=== PATIENT | female | born 1995 | race Hispanic/Latino ===

== ENCOUNTER 2018-12-11 12:47 | Day surgery (SDC) | payer MEDICAID, OTHER ==
[2018-12-11 13:25] VITALS: BP 132/78; TEMP 99.2; BMI 28.7
--- NOTE | 2018-12-11 14:44 | PDOC.FPROB ---
FMR OB H&P: HPI - History of Present Illness Chief Complaint: lost mucous plug Indentification: at 39.3 by 7.3wk sono History of Present Illness: Patient comes in with complaint of blood tinged locia which started earlier this morning. She notices the discharge when urinating. She denies burning with urination or blood in the urine. She denies sudden rupture of membranes or slow leakage. She states she is feeling contractions every hour or so but not currently. The patient denies fevers, chills, sweats, N/V/D. She has been tolerating PO without difficulty. She was checked at [facility] yesterday and was told she was dilated to 4cm. Primary Care Physician: ryan FMR OB H&P: Current - Care : 2 Para: 1 Gestational age: 39.3 Due date: 12/15/18 Dating Criteria: 7.3wk sono - OB Labs Blood type: O RH: positive Antibody Screen: negative HIV: negative RPR: negative HepBsAg: negative Rubella: immune Quad screen: negative Gonorrhea: negative Chlamydia: negative Pap Smear: negative 1 hour gtt: 108 FMR OB H&P: History - Past Medical History PMH: denies significant PMH - OB History OB History: first baby born at 33 weeks, autism - [employer] DIETITIAN History [employer] DI[employer]IAN History: denies abnormal pap or STIs - Surgical History Sx History: negative - Social History Social History: denies smoking, alcohol, or drugs - Family History Family History: patient denies history of ovarian or breast cancer FMR OB H&P: Medications - Current Home Medications: Medication Instructions Recorded Confirmed Type Vitamin 1 tab PO DAILY 12/11/18 12/11/18 History Allergies/Adverse Reactions: Allergies Allergy/AdvReac Type Severity Reaction Status Date / Time No Known Drug Allergies Allergy Unverified 03/02/16 10:11 FMR OB H&P: ROS - Review of Systems General: denies: fever/chills, night sweats, recent trauma Eyes: denies: eye pain, vision changes ENT: denies: nasal congestion, rhinorrhea Cardiovascular: denies: palpitation, orthopnea Respiratory: denies: cough, congestion, shortness of breath Gastrointestinal: denies: abdominal pain, cramping, nausea, vomiting Musculoskeletal: denies: pain, stiffness Neurologic: denies: numbness, syncope, loss of counsciousness Integumentary: denies: itching, rash Psychological: denies: depression, anxiety FMR OB H&P: Vital Signs - Maternal Vital signs: Vital Signs - First Documented Temp Pulse Resp BP 99.2 F 99 18 132/78 12/11/18 13:17 12/11/18 13:17 12/11/18 13:17 12/11/18 13:17 - Heart Tones Baseline: 150 Variability: moderate Acceleration: present Deceleration: absent Category: category 1 [place] contractions every: irregular FMR OB H&P: Physical Exam - Physical Exam General: NAD, awake, alert and oriented HEENT: normocephalic and atraumatic, PERRLA, EOMI Neck: supple Heart: RRR, normal S1/S2, no murmurs/rubs/gallops General: CTAB, no respiratory distress, good air movement Abdomen: soft, gravid, fundus(cm), non-tender, bowel sound present Musculoskeletal: normal gait and station, pulses present Neurological: cranial nerves II through XII intact Skin: no rash, good tugor, capillary refill <2 seconds Lymphatic: no unusual bruising or bleeding FMR OB H&P: A/P - Problem List (1) Status: Acute Discussion: Date/Time: 12/11/18 1442 at 39.3 by 7.3wk sono # labor check - 3 - 4cm at clinic yesterday - irregular contractions, not in active labor - denies bleeding, ROM - labor precautions discussed at length - instructed patient to come on back with any concerns - would anticipate labor in the next few days - Dr. Martin, PCP notified of visit This H&P was discussed with Dr. Dunn who agree with the above documentation and plan. Addendum - Attending - Attending Attestation Date/Time: 12/11/18 9747 I personally evaluated the patient and discussed the management with Dr. Heber Lucas I agree with the History, Examination, Assessment and Plan documented above with any addition or exceptions noted below - 23 yo @39+ weeks presented c/o mucousy discharge with some blood. Denies any ctx. (+) FM. Category 1 FHTs. SVE /-3. [place]- no ctx. A/P: 1) IUP @ 39+ weeks with bloody show; not in labor; d/c home with labor precautions.
== END 2018-12-11 14:45 | disposition home or self-care (01) ==
LOC: L&D/OP 12:47
PROVIDERS: ATTEND Student in an Organized Health Care Education/Training Program
DX: O99.89 Other specified diseases and conditions complicating pregnancy, childbirth and the puerperium (principal); N89.8 Other specified noninflammatory disorders of vagina; Z3A.39 39 weeks gestation of pregnancy
CPT/HCPCS: 99282

== ENCOUNTER 2018-12-12 01:43 | Inpatient (IN) | payer OTHER ==
--- NOTE | 2018-12-12 02:07 | PDOC.FPROB ---
FMR OB H&P: HPI - History of Present Illness Chief Complaint: Contractions Indentification: @ 39.4 by 7.3 wk sono History of Present Illness: @ 39.4 by 7.3 wk sono presents for painful contractions every 2 minutes and with SROM around midnight. Patient states baby is moving well, blood tinged discharge, LOF @ midnight. Denies fever/chills, headache, eye pain/vision changes, n/v/d, and dysuria. Primary Care Physician: EVELIA Martin FMR OB H&P: Current - Care : 2 Para: 0101 Gestational age: 39.4 Due date: 12/15/2018 Dating Criteria: 7.3 wk sono - OB Labs Blood type: O RH: positive Antibody Screen: negative HIV: negative RPR: negative HepBsAg: negative Rubella: immune Quad screen: negative Urine drug screen: negative Gonorrhea: negative Chlamydia: negative Pap Smear: normal 1 hour gtt: 108 GBS: unknown FMR OB H&P: History - Past Medical History PMH: None - OB History OB History: First child was son, born early at 33 wks, has autism - [employer]IP COATER History [employer] History: Denies STIs or abnormal paps - Surgical History Sx History: None - Social History Social History: No t/a/d use - Family History Family History: mGM with diabetes No ovarian or breast cancer in family FMR OB H&P: Medications - Current Home Medications: Medication Instructions Recorded Confirmed Type Vitamin 1 tab PO DAILY 12/11/18 12/12/18 History Allergies/Adverse Reactions: Allergies Allergy/AdvReac Type Severity Reaction Status Date / Time No Known Drug Allergies Allergy Verified 12/12/18 02:12 FMR OB H&P: ROS - Review of Systems General: denies: fever/chills Eyes: denies: eye pain, vision changes ENT: denies: nasal congestion, rhinorrhea Cardiovascular: reports: edema. denies: chest pain, palpitation Respiratory: denies: cough, congestion Gastrointestinal: reports: abdominal pain (with contractions), other (frequent bowel movements, but not diarrhea). denies: diarrhea, constipation Genitourinary (Female): denies: dysuria, hematuria Musculoskeletal: denies: pain, stiffness Neurologic: denies: numbness, syncope, loss of counsciousness Integumentary: denies: itching, rash Psychological: denies: depression, anxiety FMR OB H&P: Vital Signs - Maternal Vital signs: 131/88, P 95, R 16, T 99 (axillary) - Heart Tones Baseline: 130 Variability: moderate Deceleration: absent Category: category 1 [place] contractions every: 2 minutes FMR OB H&P: Physical Exam - Physical Exam General: awake, alert and oriented, other (grimacing through contractions) HEENT: normocephalic and atraumatic, PERRLA, EOMI, MMM, conjunctiva clear, oropharynx clear, good dention Neck: supple, other (+LAD) Heart: RRR, normal S1/S2, no murmurs/rubs/gallops, pulses present General: CTAB, no respiratory distress, good air movement, no rales/rhonchi, no wheezing Abdomen: soft, gravid Skin: no rash, good tugor, capillary refill <2 seconds Lymphatic: no unusual bruising or bleeding, no purpura Psychiatric: intact recent and remote memory, good judgement and insight, normal mood and affect FMR OB H&P: A/P - Problem List (1) Active labor at term Current Visit: Yes Status: Acute Code(s): [id number] - (2) Current Visit: No Status: Acute Discussion: Date/Time: 12/12/18 0207 at 39.4 by 7.3wk sono #sIUP - SVE: /-1 - FHTs cat 1: 130, mod variability, no decels - regular q2min contractions, active labor - SROM @ midnight - GBS unknown - Pt desires epidural - Plans to breast and bottle feed - Expecting Baby girl! - Expectant management Addendum - Attending - Attending Attestation Date/Time: 12/12/18 0654 I personally evaluated the patient and discussed the management with Dr. Lucas I agree with the History, Examination, Assessment and Plan documented above with any addition or exceptions noted below. 23 year old at 39w4d dated by 7w3d US presenting in active labor uncomplicated. She received 17 OH-P for history of delivery Admit for active labor at term. GBS unknown. term . Will hold prophylaxis. Baby will need 48hr stay Cephalic by sutures Cat I FHT Anticipate
[2018-12-12 02:21] VITALS: BMI 28.7
[2018-12-12] MEDS ORDERED: Butorphanol Tartrate 1 MG/ML VIAL SLOW IVP PRN (02:21)
[2018-12-12] MEDS ORDERED: Acetaminophen 500 MG TAB PO PRN (02:21)
[2018-12-12] MEDS ORDERED: Ondansetron PF 4 MG/2 ML Vial IVP PRN (02:21)
[2018-12-12] MEDS ORDERED: Lidocaine 1% (PF) 30 ML VIAL SC PRN (02:21)
[2018-12-12] MEDS ORDERED: Promethazine HCl 25 MG/ML VIAL IM PRN (02:21)
[2018-12-12 02:28] LABS: Hemoglobin 12.5 g/dL (12.0-16.0); Mean Corpuscular HGB CONC 34.4 g/dL (32.0-36.0); Mean Corpuscular Hemoglobin 32.9 pg (27.0-31.0); Mean Corpuscular Volume 95.7 fL (78.0-98.0); Mean Platelet Volume 7.2 fL (7.4-10.4); Platelet Count 238 thou/uL (130-400); RBC Distribution Width 11.9 % (11.5-14.5); Red Blood Cell (RBC) Count 3.79 mill/uL (4.20-5.40)
[2018-12-12] MEDS ORDERED: Fentanyl 100 MCG/2 ML VIAL ONE (03:06)
[2018-12-12] MEDS: Lactated Ringer's 1,000 ML IV SCH ×3 (03:34→16:20)
[2018-12-12] MEDS ORDERED: Fentanyl 4 mcg/Bup 0.1% Cadd 100 ML ONE (03:38)
--- NOTE | 2018-12-12 04:41 | PDOC.LDPN ---
Labor & Delivery Progress Note - Subjective Subjective: comfortable - Objective Vital signs reviewed and normal: yes General: NAD, resting Dilation: 10 Effacement: 100% Station: 0 FHT: category 1 [place] contractions every: 2 mins - Assessment (1) Active labor at term Code(s): [id number] - Current Visit: Yes Status: Acute (2) Current Visit: No Status: Acute Plan: continue plan of care -: #sIUP - SVE: /-0 @ 0430 - FHTs cat 1: 140, mod variability, no decels - regular q2min contractions, active labor - SROM @ midnight - GBS unknown - epidural in place - Plans to breast and bottle feed - Expecting Baby girl! - Expectant management
[2018-12-12] MEDS: NS / Oxytocin 40 units/1000ml 1,000 ML IV PRN ×2 (05:55→05:56)
--- NOTE | 2018-12-12 06:14 | PDOC.OPDEL ---
OB Operative/Delivery Note Delivery Dr/Surgeon: Dr. Hooker, Dr. Matilde Guaman Assist: Dr. Lopez attending Pre-Delivery Diagnosis: active labor Procedure/Post Delivery Dx: spontaneous vaginal delivery Weeks gestation: 39 (4) Anesthesia: epidural - Findings A Sex: female - 1 min: 8 - 5 min: 9 - Additional Findings/Plan Placenta delivered: spontaneous Repaired Obstetrical Laceration: 2nd degree (2nd degree and left labial) Estimated blood loss: QBL 211 ml Compilations/Other Findings: Vaginal Delivery Dictation Guideline Delivering Physician Jewels Lucas MD, Dr. Matilde Guaman Attending Dr. Lopez Procedure: Spontaneous Vaginal Delivery Anesthesia: epidural, Local for Repair QBL: 211 ml Pre-op Diagnosis: 1. Term intrauterine in labor Post-op Diagnosis: 1. Term intrauterine , delivered 2. same as above Indications: A 23 y/o female presents in active labor Delivery Note: This is 23 yo F @ 39.4 wks who delivered a viable F infant at 0514. Following an uneventful antepartum course, a vigorous f was delivered over an intact perineum in the L occipitoanterior position. Anterior Shoulder and then remainder of the body delivered. No nuchal cord. The head was held down and mouth and nares were bulb suctioned. Cord clamped and cut and cord blood collected. Placenta delivered intact in the Sheriff presentation with a 3 vessel cord noted. Fundal massage was performed and the fundus was firm. The cervix and vagina were inspected and 2nd degree midline Laceration and left labial laceration noted and repaired with 3.0 vicryl in the usual fashion with good approximation and hemostasis. went to nursery in good condition for routine care. Apgars were 8/9 at 1 & 5 minutes, respectively. Patient tolerated delivery well and went to after routine recovery/care. Post delivery plan: routine recovery Addendum - Attending - Attending Attestation Date/Time: 12/12/18 0703 I was present for and assisted in the uncomplicated and laceration repair performed by Kings Lucas and Rowena. I agree with the above documentation
[2018-12-12] MEDS ORDERED: NS / Oxytocin 40 units/1000ml 1,000 ML IV SCH (08:07)
[2018-12-12] MEDS ORDERED: Acetaminophen/Codeine 30-300mg Tablet PO PRN (08:07)
[2018-12-12] MEDS ORDERED: traMADol HCl 50 MG TAB PO PRN (08:07)
[2018-12-12] MEDS ORDERED: diphenhydrAMINE 25 MG CAP PO PRN (08:07)
[2018-12-12] MEDS ORDERED: Preparation H Ointment 28 GM TUBE PR PRN (08:07)
[2018-12-12] MEDS ORDERED: Bisacodyl 10 MG SUPP PR PRN (08:07)
[2018-12-12] MEDS ORDERED: Milk Of Magnesia 30 ML UDCUP PO PRN (08:07)
[2018-12-12] MEDS: Ferrous Sulfate 325 MG TAB PO SCH ×2 (09:40→16:20)
[2018-12-12] MEDS: Prenatal Vitamin 1 TAB PO SCH (10:37)
[2018-12-12] MEDS: Docusate Calcium (SURFAK) 240 MG CAP PO SCH ×2 (10:37→21:31)
[2018-12-12 11:55] LABS: HBSAg Index 0.25 S/CO (0-0.99); Hep B Surf Ag Non-Reactive S/CO (NonReactive); Syphilis Antibody Nonreactive (Nonreactive); Syphilis Antibody Index 0.04 S/CO (<1.00 Non-Reactive)
[2018-12-12] MEDS: Ibuprofen 800 MG TAB PO SCH ×2 (13:46→21:31)
[2018-12-12] MEDS ORDERED: Bupivacaine HCl 0.25%/Epi 0.0005/PF 10 ML VIAL FS ONE (14:00)
[2018-12-13] MEDS: Ibuprofen 800 MG TAB PO SCH ×2 (05:40→13:30)
[2018-12-13] MEDS: Lactated Ringer's 1,000 ML IV SCH (05:55)
[2018-12-13 06:21] LABS: Hemoglobin 10.9 g/dL (12.0-16.0); Mean Corpuscular HGB CONC 34.5 g/dL (32.0-36.0); Mean Corpuscular Hemoglobin 33.7 pg (27.0-31.0); Mean Corpuscular Volume 97.6 fL (78.0-98.0); Mean Platelet Volume 7.2 fL (7.4-10.4); Platelet Count 201 thou/uL (130-400); RBC Distribution Width 12.2 % (11.5-14.5); Red Blood Cell (RBC) Count 3.25 mill/uL (4.20-5.40); White Blood Cell (WBC) Count 9.5 thou/uL (4.8-10.8)
[2018-12-13] MEDS: Docusate Calcium (SURFAK) 240 MG CAP PO SCH (08:28)
[2018-12-13] MEDS: Ferrous Sulfate 325 MG TAB PO SCH ×2 (08:28→14:24)
[2018-12-13] MEDS: Prenatal Vitamin 1 TAB PO SCH (08:28)
[2018-12-13] MEDS: Acetaminophen 500 MG TAB PO SCH ×2 (08:29→13:20)
[2018-12-13 08:45] VITALS: BP 121/59; TEMP 97.6
[2018-12-13] MEDS ORDERED: Adacel (T-DAP) 0.5 ML SYRINGE IM ONE (09:00)
--- NOTE | 2018-12-13 09:56 | PDOC.PP ---
Post Progress Note Post Day #: 1 Subjective: NAEO. Patient reports doing well this morning. She is ambulating and tolerating PO. Patient states she has minimal burning with urination. Denies chest pain, abdominal pain, SOB, NVD, headache, vision changes, dizziness. PO intake tolerated: yes Flatus: no Ambulation: yes Vital Signs (12 hours) Temp Pulse Resp BP Pulse Ox 12/13/18 08:00 97.6 F 77 18 121/59 L 99 12/13/18 04:00 98.2 F 73 16 101/55 L 12/13/18 00:00 98.3 F 84 16 107/56 L Weight Weight 73.482 kg - Physical Examination General: NAD Cardiovascular: no m/r/g, RRR Respiratory: clear to auscultation bilaterally, non-labored breathing Abdominal: + bowel sounds, no distention, appropriately TTP Fundus firm & at: level of umbilicus Skin: CS incision dry & intact Neurological: no gross focal deficits Psychiatric: A&Ox3, normal affect Result Diagrams: 12/13/18 05:52 Additional Labs: Post Labs Blood Type O POSITIVE 12/12/18 02:07 Hep Bs Antigen Non-Reactive S/CO (NonReactive) 12/12/18 02:07 (1) Status: Acute - Assessment/Plan PP day 1 - Routine PP care - consult placed - Encourage ambulation - Tylenol and motrin PRN for pain - Patient tolerating PO - H&H stable post delivery Case discussed with Dr. Martin DISPO: id tomorrow Addendum - Attending - Attending Attestation Date/Time: 12/13/18 1217 I personally evaluated the patient and discussed the management with Dr. Dhaliwal I agree with the History, Examination, Assessment and Plan documented above with any addition or exceptions noted below. 23 yo female s/p on 12/12/18 at 0514 HD#1 Patient doing well. No acute changes overnight. Voiding, tolerating PO, and ambulating well. Lochia mild. No clots. Pain controlled. VS reviewed. Labs reviewed. Agree with PE documented above. Fundus firm and nontender below the umbilicus. Mild left labial edema. No hematoma. Incision intact and healing well. 1. s/p : Meeting milestones. healthcare consultant today. Monitor pain control. 2. hx of PTD: s/p 17 OHP. Now with term delivery. 3. 2nd degree perineal laceration s/p repair: Healing well. No complications. 4. GBS negative 5. Contraceptions: OCPs vs LARC Continue routine pp care throughout the day. Possible d/c after 36 hours. Juan Carlos
== END 2018-12-13 17:54 | disposition home or self-care (01) | DRG 807 ==
LOC: L&D/OP 01:43 → L&D 02:03 → 3SW 08:30
PROVIDERS: ADMIT Family Medicine; ATTEND Family Medicine
PROC: 10E0XZZ Delivery of Products of Conception, External Approach (ICD-10-PCS; principal; 2018-12-12)
PROC: 0KQM0ZZ Repair Perineum Muscle, Open Approach (ICD-10-PCS; 2018-12-12)
DX: O70.1 Second degree perineal laceration during delivery (principal); Z37.0 Single live birth; Z3A.39 39 weeks gestation of pregnancy
CPT/HCPCS: 36415; 85027; 86780; 86850; 86900; 86901; 87340; 99282; 99285; J3010